=== PATIENT | female | born 1980 | race Caucasian/White ===

== ENCOUNTER 2019-10-11 12:23 | Emergency (ER) | payer SELFPAY ==
[2019-10-11 12:27] VITALS: BP 111/64
--- NOTE | 2019-10-11 12:56 | ER Document Report ---
ED Medical Screen (RME) - General Chief Complaint: Vaginal Discharge Stated Complaint: VAGINAL BLEEDING Time Seen by Provider: 10/11/19 12:52 Primary Care Provider: YANDY JERONIMO MD [Primary Care Provider] - Follow up as needed Mode of Arrival: Ambulatory Information source: Patient Notes: 39-year-old female presents to ED for vaginal discharge today that has a fishy smell. She states she knows she had a regular period on August 23 to the beginning of August and then on September 29 she started what she thought was her. But then she had golf ball size clots and cramping like when she had a baby. She states that when on about 24 hours. She states she did not visit a provider but now she has a fishy discharge. We will get blood urine and a ultrasound. She will need a pelvic exam with swabs. She states she has pain in the pelvic area and lower back about a 4 I have greeted and performed a rapid initial assessment of this patient. A comprehensive ED assessment and evaluation of the patient, analysis of test results and completion of medical decision making process will be conducted by an additional ED providers. Physical Exam - Vital signs Vitals: Temp Pulse Resp BP Pulse Ox 98.3 F 86 16 111/64 100 10/11/19 12:26 10/11/19 12:10/11/19 12:10/11/19 12:10/11/19 12:26 Course - Vital Signs Vital signs: Temp Pulse Resp BP Pulse Ox 98.3 F 86 16 111/64 100 10/11/19 12:26 10/11/19 12:26 10/11/19 12:10/11/19 12:10/11/19 12:26 Doctor's Discharge - Discharge Referrals: YANDY JERONIMO MD [Primary Care Provider] - Follow up as needed
[2019-10-11 13:25] LABS: ABSOLUTE BASOPHILS # (AUTO) 0.1 10^3/uL (0.0-0.2); ABSOLUTE EOSINOPHILS # (AUTO) 0.4 10^3/uL (0.0-0.6); ABSOLUTE LYMPHOCYTES (AUTO) 1.5 10^3/uL (0.5-4.7); ABSOLUTE MONOCYTES (AUTO) 0.6 10^3/uL (0.1-1.4); ABSOLUTE NEUT (AUTO) 4.5 10^3/uL (1.7-8.2); BASOPHILS % (AUTO) 1.2 % (0-2); EOSINOPHILS % (AUTO) 5.7 % (0-6); HEMATOCRIT 35.7 % (36.0-47.0); HEMOGLOBIN 12.2 g/dL (12.0-15.5); LYMPHOCYTES % (AUTO) 21.5 % (13-45); MEAN CORPUSCULAR HEMOGLOBIN 30.4 pg (27.0-33.4); MEAN CORPUSCULAR HGB CONC 34.3 g/dL (32.0-36.0); MEAN CORPUSCULAR VOLUME 89 fl (80-97); MONOCYTES % (AUTO) 8.7 % (3-13); PLATELET COUNT 388 10^3/uL (150-450); RED BLOOD COUNT 4.03 10^6/uL (3.72-5.28); RED CELL DISTRIBUTION WIDTH 13.4 % (11.5-14.0); SEGMENTED NEUTROPHILS % (AUTO) 62.9 % (42-78); TOTAL CELLS COUNTED % (AUTO) 100 %; WHITE BLOOD COUNT 7.1 10^3/uL (4.0-10.5)
[2019-10-11 13:40] LABS: APPEARANCE,URINE CLOUDY; BILIRUBIN,URINE NEGATIVE (NEGATIVE); CALCIUM OXALATE CRYSTALS,URINE FEW /HPF; COLOR,URINE AMBER; GLUCOSE, URINE NEGATIVE (NEGATIVE); KETONES,URINE TRACE mg/dL (NEGATIVE); LEUKOCYTE ESTERASE,URINE LARGE (NEGATIVE); NITRITE,URINE NEGATIVE (NEGATIVE); PROTEIN,URINE 30 mg/dL (NEGATIVE); URINE SPECIFIC GRAVITY 1.028; UROBILINOGEN,URINE NEGATIVE mg/dL (<2.0)
--- NOTE | 2019-10-11 13:41 | RADIOLOGY REPORT (SQ) ---
EXAM DESCRIPTION: U/S NON-OB PELVIS TV W/O DOP IMAGES COMPLETED DATE/TIME: 10/11/2019 1:31 pm REASON FOR STUDY: Pelvic pain may have had recent miscarriage COMPARISON: None. TECHNIQUE: Dynamic and static grayscale images acquired of the pelvis via transvaginal approach and recorded on PACS. Additional selected color Doppler and spectral images recorded. LIMITATIONS: None. FINDINGS: UTERUS: Contour normal. No mass. ENDOMETRIAL STRIPE: No focal or generalized thickening. No masses. CERVIX: No nabothian cysts. RIGHT OVARY AND DOPPLER: Normal size. No worrisome masses. Normal arterial vascular flow without evid ence for torsion. LEFT OVARY AND DOPPLER: Ovary not visualized. FREE FLUID: None noted. OTHER: No other significant finding. MEASUREMENTS: UTERUS: 8.1 x 3.8 x 5.1 cm ENDOMETRIAL STRIPE: 6 mm RIGHT OVARY: 3.8 x 2.1 x 2.4 cm LEFT OVARY: Not visualized. IMPRESSION: Nonvisualization of the left ovary. Normal sonographic appearance of the uterus and rig ht adnexa. TECHNICAL DOCUMENTATION: JOB ID: [id number] [employer]- All Rights Reserved Rev-07/13 Reading location - IP/workstation name: [email or web address]
[2019-10-11 13:48] LABS: ALBUMIN 4.2 g/dL (3.5-5.0); ALKALINE PHOSPHATASE 61 U/L (38-126); ANION GAP 8 (5-19); ASPARTATE AMINO TRANSFERASE 23 U/L (14-36); BILIRUBIN,TOTAL 0.4 mg/dL (0.2-1.3); BLOOD UREA NITROGEN 11 mg/dL (7-20); CALCIUM 9.3 mg/dL (8.4-10.2); CARBON DIOXIDE 26 mmol/L (22-30); CHLORIDE 105 mmol/L (98-107); GLUCOSE 106 mg/dL (75-110); POTASSIUM 3.8 mmol/L (3.6-5.0); TOTAL PROTEIN 7.2 g/dL (6.3-8.2)
--- NOTE | 2019-10-11 15:15 | ER Document Report ---
ED GI/ - General Chief Complaint: Vaginal Discharge Stated Complaint: VAGINAL BLEEDING Time Seen by Provider: 10/11/19 12:52 Primary Care Provider: YANDY JERONIMO MD [ACTIVE STAFF] - Follow up in 3-5 days Mode of Arrival: Ambulatory Notes: 39-year-old female presents with vaginal bleeding. She is having unprotected sex and did not know she was until her test today came back positive. She also has mild dysuria. She was not sure she could become "because it has been so long since I was last ." She denies abdominal cramping and her bleeding has actually tapered off at this point. - Related Data Allergies/Adverse Reactions: No Known Allergies Allergy (Verified 10/11/19 12:59) Home Medications: Phentermine Past Medical History - General Information source: Patient - Social History Smoking Status: Never Smoker Chew tobacco use (# tins/day): No Frequency of alcohol use: Rare Drug Abuse: None Family History: None Past Surgical History: Reports: Hx Breast Surgery Review of Systems - Review of Systems Notes: REVIEW OF SYSTEMS GEN: Denies fever, chills, weight loss ENT: Denies sore throat, nasal discharge, ear pain EYES: Denies blurry vision, eye pain, discharge CV: Denies chest pain, palpitations, edema RESP: Denies cough, shortness of breath, wheezing GI: Denies abdominal pain, nausea, vomiting, diarrhea MSK: Denies joint pain/swelling, edema, SKIN: Denies rash, skin lesions LYMPH: Denies swollen glands/lymph nodes NEURO: Denies headache, focal weakness or numbness, dizziness PSYCH: Denies depression, suicidal or homicidal ideation PHYSICAL EXAMINATION General: No acute distress, well-nourished Head: Atraumatic, normocephalic ENT: Mouth normal, oropharynx moist, no exudates or tonsillar enlargement Eyes: Conjunctiva normal, pupils equal, lids normal Neck: No JVD, supple, no guarding CVS: Normal rate, regular rhythm, no murmurs Resp: No resp distress, equal and normal breath sounds bilaterally GI: Nondistended, soft, no tenderness to palpation, no rebound or guarding Ext: No deformities, no edema, normal range of motion in upper and lower ext Back: No CVA or midline TTP Skin: No rash, warm Lymphatic: No lymphadeopathy noted Neuro: Awake, alert. Face symmetric. GCS 15. Physical Exam - Vital signs Vitals: Temp Pulse Resp BP Pulse Ox 98.3 F 86 16 111/64 100 10/11/19 12:26 10/11/19 12:10/11/19 12:10/11/19 12:10/11/19 12:26 Course - Re-evaluation Re-evalutation: 10/11/19 18:53 Patient presents with first trimester unknown vaginal bleeding. She does have a slightly elevated beta, but it is likely decreasing in the setting of a spontaneous miscarriage. 1 ovary nonvisualized 1 ovaries not enlarged and the uterus is empty Differential is of course ectopic, but given her bleeding is stopped she stable to discharge with ectopic precautions. She has an incidental UTI which we treat with Macrobid. was undesired unplanned. She will follow-up with women's health. I have discussed with the patient there likely diagnosis, aftercare plan, follow-up plans and my usual and customary return precautions. They verbalized understanding of this. - Vital Signs Vital signs: Temp Pulse Resp BP Pulse Ox 98.3 F 86 16 111/64 100 10/11/19 12:26 10/11/19 12:26 10/11/19 12:26 10/11/19 12:26 10/11/19 12:26 - Laboratory Result Diagrams: 10/11/19 13:02 10/11/19 13:02 Laboratory results interpreted by me: 10/11/19 10/11/19 10/11/19 13:02 13:02 13:02 Hct 35.7 L Beta HCG, Quant 601.26 H Urine Protein 30 H Urine Ketones TRACE H Ur Leukocyte Esterase LARGE H Urine Ascorbic Acid 40 H - Diagnostic Test Radiology reviewed: Image reviewed, Reports reviewed Discharge - Discharge Clinical Impression: First trimester bleeding, Cystitis without hematuria Condition: Good Disposition: HOME, SELF-CARE Instructions: Threatened Miscarriage ([facility]), Urinary Tract Infection ([facility]) Prescriptions: Nitrofurantoin Monohyd/M-Cryst [Macrobid 100 mg Capsule] 100 mg PO BID #14 cap Ibuprofen [Motrin 600 Mg Tablet] 600 mg PO TID #15 tablet Referrals: YANDY JERONIMO MD [ACTIVE STAFF] - Follow up in 3-5 days
== END 2019-10-11 15:30 | disposition home or self-care (01) ==
LOC: ER 12:23
DX: O46.91 Antepartum hemorrhage, unspecified, first trimester (principal); O23.11 Infections of bladder in pregnancy, first trimester; O26.891 Other specified pregnancy related conditions, first trimester; N89.8 Other specified noninflammatory disorders of vagina; R30.0 Dysuria; Z3A.00 Weeks of gestation of pregnancy not specified; Z79.899 Other long term (current) drug therapy
CPT/HCPCS: 36415; 76830; 80053; 81001; 84702; 85025; 86900; 86901; 99284